=== PATIENT | female | born 1995 | race American Indian/Alaskan Native ===

== ENCOUNTER 2017-02-26 05:43 | Inpatient (IN) | payer MEDICAID ==
[~2017-02-26] VITALS: Ht 152.4 cm; Wt 95.9 kg
[2017-02-26] MEDS ORDERED: METOCLOPRAMIDE 5 MG/ML, 2ML IV ONE (06:00)
[2017-02-26] MEDS ORDERED: LACTATED RINGERS 1,000 ML IVBOLUS ONE (06:00)
[2017-02-26] MEDS ORDERED: SODIUM CITRATE/CITRIC ACID 30 ML UDC PO ONE (06:00)
[2017-02-26] MEDS: LACTATED RINGERS 1,000 ML IV SCH ×9 (06:06→23:34)
[2017-02-26] MEDS ORDERED: NEWBORN KIT ONE (06:08)
[2017-02-26] MEDS ORDERED: SODIUM CITRATE/CITRIC ACID 30 ML UDC ONE (06:08)
[2017-02-26] MEDS ORDERED: METOCLOPRAMIDE 5 MG/ML, 2ML ONE (06:08)
[2017-02-26] MEDS ORDERED: OXYTOCIN 30U/ 0.9% NaCL 500ML 500 ML ONE (06:08)
[2017-02-26 06:12] VITALS: BP 119/78
[2017-02-26] MEDS ORDERED: FENTANYL PF 100 MCG/2ML ONE ×2 (07:19→08:43)
[2017-02-26] MEDS: OXYTOCIN 30U/ 0.9% NaCL 500ML 500 ML IV SCH ×4 (07:34→17:34)
[2017-02-26] MEDS ORDERED: CARBOPROST TROMETHAMINE 250 MCG/ML, 1ML IM PRN (08:00)
[2017-02-26] MEDS ORDERED: ACETAMINOPHEN 325 MG TABLET PO PRN (08:00)
[2017-02-26] MEDS ORDERED: MISOPROSTOL 200 MCG TABLET PR PRN (08:00)
[2017-02-26] MEDS ORDERED: RHOGAM FROM BLOOD BANK 1 NOTE EA IM/IV ONE (08:00)
[2017-02-26] MEDS ORDERED: ONDANSETRON 2MG/ML, 2ML IV PRN (08:00)
[2017-02-26] MEDS ORDERED: METHYLERGONOVINE 0.2 MG/ML IM PRN (08:00)
[2017-02-26] MEDS ORDERED: morphine SULFATE 10 MG/ML, 1ML IVPush PRN (08:00)
[2017-02-26] MEDS ORDERED: MISOPROSTOL 200 MCG TABLET ONE (08:28)
[2017-02-26 08:39] LABS: DAU SCREEN DISCLAIMER
[2017-02-26] MEDS: PRENATAL VIT/IRON/FA 1 EACH TABLET PO SCH (09:00)
[2017-02-26] MEDS ORDERED: morphine SULFATE 10 MG/ML, 1ML ONE (09:54)
[2017-02-26] MEDS: morphine SULFATE 10 MG/ML, 1ML IVPush PRN ×2 (09:56→10:08)
[2017-02-26 11:15] VITALS: BP 111/74
[2017-02-26] MEDS: OXYcodone/APAP 5/325MG TABLET PO PRN ×2 (11:35→14:47)
[2017-02-26] MEDS: DOCUSATE 100 MG CAPSULE PO PRN (14:47)
[2017-02-26 15:15] VITALS: BP 114/70
[2017-02-26] MEDS ORDERED: KETOROLAC 30 MG/1 ML IM SCH (19:30)
[2017-02-26 20:00] VITALS: BP 119/75
[2017-02-27] MEDS: OXYcodone/APAP 5/325MG TABLET PO PRN ×5 (00:24→20:23)
[2017-02-27 00:25] VITALS: BP 123/77
[2017-02-27] MEDS: KETOROLAC 30 MG/1 ML IV SCH ×4 (01:23→19:30)
[2017-02-27] MEDS ORDERED: KETOROLAC 30 MG/1 ML IV SCH (01:30)
[2017-02-27] MEDS: LACTATED RINGERS 1,000 ML IV SCH ×6 (03:34→23:34)
[2017-02-27] MEDS: OXYTOCIN 30U/ 0.9% NaCL 500ML 500 ML IV SCH ×3 (03:34→23:34)
[2017-02-27 04:00] VITALS: BP 103/69
[2017-02-27 07:54] VITALS: BP 114/73
[2017-02-27] MEDS: DOCUSATE 100 MG CAPSULE PO PRN ×2 (08:51→20:22)
[2017-02-27] MEDS: PRENATAL VIT/IRON/FA 1 EACH TABLET PO SCH (08:51)
[2017-02-27] MEDS: IBUPROFEN 600 MG TABLET PO PRN ×2 (15:02→21:41)
[2017-02-27 19:20] VITALS: BP 127/86
[2017-02-27 19:53] VITALS: BP 123/76
[2017-02-28] MEDS: OXYcodone/APAP 5/325MG TABLET PO PRN ×3 (01:36→09:31)
[2017-02-28] MEDS: IBUPROFEN 600 MG TABLET PO PRN (05:24)
[2017-02-28 07:30] VITALS: BP 118/83
[2017-02-28] MEDS: LACTATED RINGERS 1,000 ML IV SCH (07:34)
[2017-02-28] MEDS: DOCUSATE 100 MG CAPSULE PO PRN (09:31)
[2017-02-28] MEDS: PRENATAL VIT/IRON/FA 1 EACH TABLET PO SCH (09:31)
[2017-02-28] MEDS ORDERED: OXYC-302 PO (10:57)
[2017-02-28] MEDS ORDERED: IBUP-1222 PO (10:58)
[2017-02-28] MEDS ORDERED: SENN-1 PO (10:59)
== END 2017-02-28 12:00 | disposition home or self-care (01) | DRG 766 ==
LOC: LDIP 05:43 → 2NW 11:04
PROVIDERS: ADMIT Obstetrics & Gynecology; ATTEND Obstetrics & Gynecology
PROC: 10D00Z1 Extraction of Products of Conception, Low, Open Approach (ICD-10-PCS; principal; 2017-02-26)
PROC: 0DNW0ZZ Release Peritoneum, Open Approach (ICD-10-PCS; 2017-02-26)
DX: O34.211 Maternal care for low transverse scar from previous cesarean delivery (principal); Z37.0 Single live birth; O99.89 Other specified diseases and conditions complicating pregnancy, childbirth and the puerperium; N73.6 Female pelvic peritoneal adhesions (postinfective); O69.81X0 Labor and delivery complicated by cord around neck, without compression, not applicable or unspecified; Z3A.39 39 weeks gestation of pregnancy
CPT/HCPCS: 36415; 80307; 82803; 85025; 85461; 86850; 86900; J1885; J2790; J3010; J2270; J2590; J2765; J7120

== ENCOUNTER 2018-09-26 21:28 | Emergency (ER) | payer SELFPAY ==
[~2018-09-26 21:28] MED LIST: IBUP-1222 PO; OXYC-302 PO; SENN-92 PO
[2018-09-26 21:33] VITALS: BP 118/63
== END 2018-09-26 21:46 | disposition left against medical advice (07) ==
LOC: ED 21:40
DX: R10.9 Unspecified abdominal pain (principal); Z53.21 Procedure and treatment not carried out due to patient leaving prior to being seen by health care provider

== ENCOUNTER 2019-02-14 18:14 | Emergency (ER) | payer MEDICAID ==
[~2019-02-14] VITALS: Ht 152.4 cm; Wt 91.0 kg
--- NOTE | 2019-02-14 18:39 | NUR ---
Dr. Fong at bedside to evaluate pt.
--- NOTE | 2019-02-14 18:49 | NUR ---
Lab at bedside. Pt aware of need for urine sample after US.
--- NOTE | 2019-02-14 18:53 | NUR ---
Pt to imaging, with tech, via [facility].
[2019-02-14 18:59] LABS: BASOPHILS # (AUTO) 0.03 x10^3/uL (0-0.1); BASOPHILS % (AUTO) 0 % (0-1); EOSINOPHILS # (AUTO) 0.17 x10^3/uL (0-0.4); EOSINOPHILS % (AUTO) 2 % (1-7); LYMPHOCYTES # (AUTO) 3.56 x10^3/uL (1-3.4); LYMPHOCYTES % (AUTO) 35 % (22-44); MD NO; MEAN CORPUSCULAR HGB CONC 34.3 g/dL (32.4-35.8); MEAN CORPUSCULAR VOLUME 84.8 fL (80-100); MEAN PLATELET VOLUME 9.3 fL (7.4-10.4); MONOCYTES # (AUTO) 0.53 x10^3/uL (0.2-0.8); MONOCYTES % (AUTO) 5 % (2-9); NEUTROPHILS # (AUTO) 5.77 x10^3/uL (1.8-6.8); NEUTROPHILS % (AUTO) 57 % (42-75); PLATELET COUNT 257 x10^3/uL (130-400); RED BLOOD COUNT 5.08 x10^6/uL (3.82-5.3)
--- NOTE | 2019-02-14 19:21 | NUR ---
Pt back to room from imaging.
[2019-02-14 19:45] LABS: MICROSCOPIC INDICATED
[2019-02-14 19:52] LABS: CULTURE INDICATED? NO
--- NOTE | 2019-02-14 19:56 | NUR ---
Patient/Caregiver given discharge instructions and they have confirmed that they understand the instructions. Patient ambulatory with steady gait.
[2019-02-14 19:57] VITALS: BP 100/52
== END 2019-02-14 19:58 | disposition home or self-care (01) ==
LOC: ED 19:52
DX: O03.9 Complete or unspecified spontaneous abortion without complication (principal); O99.331 Smoking (tobacco) complicating pregnancy, first trimester; Z3A.01 Less than 8 weeks gestation of pregnancy
CPT/HCPCS: 36415; 76856; 81001; 84702; 85025; 86901; 99284

== ENCOUNTER 2019-11-21 19:59 | Emergency (ER) | payer MEDICAID ==
[~2019-11-21] VITALS: Ht 152.4 cm; Wt 96.2 kg
[2019-11-21 20:02] VITALS: BP 124/75
[2019-11-21] MEDS ORDERED: ACETAMINOPHEN 500 MG TABLET ONE (20:38)
[2019-11-21] MEDS ORDERED: ACETAMINOPHEN 500 MG TABLET PO ONE (21:00)
[2019-11-21 21:38] LABS: MICROSCOPIC NOT IND
[2019-11-21 21:40] LABS: CULTURE INDICATED? NO
== END 2019-11-21 22:13 | disposition home or self-care (01) ==
LOC: ED 21:23
DX: O26.892 Other specified pregnancy related conditions, second trimester (principal); O99.332 Smoking (tobacco) complicating pregnancy, second trimester; R10.84 Generalized abdominal pain; R05 Cough; F17.200 Nicotine dependence, unspecified, uncomplicated; Z3A.17 17 weeks gestation of pregnancy
CPT/HCPCS: 76815; 81003; 99284

== ENCOUNTER → 2020-03-23 | Outpatient (CLI) | payer MEDICAID ==
[~2020-03-23] VITALS: Ht 152.4 cm; Wt 101.7 kg
[~2020-03-23] MED LIST changes: +FENTANYL PF 100 MCG/2ML ONE; +METOCLOPRAMIDE 5 MG/ML, 2ML ONE; +SODIUM CITRATE/CITRIC ACID 30 ML UDC ONE
[2020-03-23 21:21] VITALS: BP 120/73
== END | disposition home or self-care (01) ==
LOC: LDOP 20:27
PROVIDERS: ATTEND Obstetrics & Gynecology
DX: O42.92 Full-term premature rupture of membranes, unspecified as to length of time between rupture and onset of labor (principal); Z3A.37 37 weeks gestation of pregnancy
CPT/HCPCS: 59025; 84112; 99211; G0463

== ENCOUNTER 2020-03-27 07:28 | Inpatient (IN) | payer MEDICAID ==
[~2020-03-27] VITALS: Ht 152.4 cm; Wt 101.4 kg
[~2020-03-27 07:28] MED LIST changes: -FENTANYL PF 100 MCG/2ML ONE; -METOCLOPRAMIDE 5 MG/ML, 2ML ONE; -SODIUM CITRATE/CITRIC ACID 30 ML UDC ONE
[2020-03-27] MEDS ORDERED: LACTATED RINGERS 1,000 ML IV SCH (07:35)
[2020-03-27] MEDS ORDERED: NEWBORN KIT ONE (07:48)
[2020-03-27] MEDS ORDERED: OXYTOCIN 30U/ 0.9% NaCL 500ML 500 ML ONE (07:49)
[2020-03-27] MEDS ORDERED: EPHEDRINE 50 MG/ML, 1ML ONE (07:54)
[2020-03-27] MEDS ORDERED: ONDANSETRON 2MG/ML, 2ML ONE ×2 (07:54)
[2020-03-27] MEDS ORDERED: SODIUM BICARBONATE 1 MEQ/ML, 50ML VIAL ONE (07:54)
[2020-03-27] MEDS ORDERED: DEXAMETHASONE 4 MG/ML, 1ML ONE (07:54)
[2020-03-27] MEDS ORDERED: KETOROLAC 30 MG/1 ML ONE (07:54)
[2020-03-27] MEDS ORDERED: OXYTOCIN 10 UNITS/ML, 1ML ONE (07:54)
[2020-03-27] MEDS ORDERED: SUCCINYLCHOLINE 20 MG/ML, 10ML ONE (07:54)
[2020-03-27] MEDS ORDERED: PROPOFOL 10 MG/ML, 20ML ONE ×3 (07:54)
[2020-03-27] MEDS ORDERED: LIDOCAINE-MPF 2% ,5ML ONE (07:54)
[2020-03-27] MEDS ORDERED: CEFAZOLIN 1,000 MG ONE (07:54)
[2020-03-27] MEDS ORDERED: PHENYLEPHRINE 10 MG/ML ONE (07:54)
[2020-03-27] MEDS ORDERED: FENTANYL PF 100 MCG/2ML ONE ×2 (07:56→08:15)
[2020-03-27] MEDS ORDERED: MEPERIDINE/PF 25MG/0.5ML IVPush PRN (08:00)
[2020-03-27] MEDS ORDERED: PROMETHAZINE 25 MG/ML, 1ML IV PRN (08:00)
[2020-03-27] MEDS ORDERED: SODIUM CITRATE/CITRIC ACID 30 ML UDC PO ONE (08:00)
[2020-03-27] MEDS ORDERED: hydrALAzine 20 MG/ML, 1ML IV PRN (08:00)
[2020-03-27] MEDS ORDERED: LABETALOL 5MG/ML, 20ML IV PRN (08:00)
[2020-03-27] MEDS ORDERED: LACTATED RINGERS 1,000 ML IVBOLUS ONE (08:00)
[2020-03-27] MEDS ORDERED: OXYcodone 5 MG/5 ML ORAL.SOL UDC PO PRN (08:00)
[2020-03-27] MEDS ORDERED: EPHEDRINE 50 MG/ML, 1ML IVPush PRN (08:00)
[2020-03-27] MEDS ORDERED: ALBUTEROL SULFATE 2.5 MG/3 ML NPPB PRN (08:00)
[2020-03-27] MEDS ORDERED: METOCLOPRAMIDE 5 MG/ML, 2ML IV ONE (08:00)
[2020-03-27] MEDS ORDERED: HYDROcodone/APAP 7.5-325MG/15ML UDC PO PRN (08:00)
[2020-03-27] MEDS ORDERED: AZITHROMYCIN 500 MG in SODIUM CHLORIDE 0.9% 250 ML IV ONE (08:00)
[2020-03-27] MEDS ORDERED: HYDROmorphone 2 MG/ML, 1ML IVPush PRN (08:00)
[2020-03-27] MEDS ORDERED: ONDANSETRON 2MG/ML, 2ML IVPush PRN (08:00)
[2020-03-27 08:01] VITALS: BP 120/68
[2020-03-27 08:07] LABS: BASOPHILS # (AUTO) 0.01 x10^3/uL (0-0.1); BASOPHILS % (AUTO) 0 % (0-1); EOSINOPHILS # (AUTO) 0.05 x10^3/uL (0-0.4); EOSINOPHILS % (AUTO) 0 % (1-7); LYMPHOCYTES # (AUTO) 1.33 x10^3/uL (1-3.4); LYMPHOCYTES % (AUTO) 10 % (22-44); MD NO; MEAN CORPUSCULAR HEMOGLOBIN 27.9 pg (27.0-34.8); MEAN CORPUSCULAR HGB CONC 33.6 g/dL (32.4-35.8); MEAN PLATELET VOLUME 9.5 fL (7.4-10.4); MONOCYTES # (AUTO) 0.65 x10^3/uL (0.2-0.8); MONOCYTES % (AUTO) 5 % (2-9); NEUTROPHILS # (AUTO) 10.82 x10^3/uL (1.8-6.8); NEUTROPHILS % (AUTO) 84 % (42-75); PLATELET COUNT 192 x10^3/uL (130-400)
[2020-03-27 08:12] LABS: INTERNATIONAL NORMALIZED RATIO 0.93 (0.93-1.1); PROTHROMBIN TIME 9.9 Seconds (9.6-11.5)
[2020-03-27] MEDS ORDERED: HYDROmorphone 2 MG/ML, 1ML ONE (08:15)
[2020-03-27] MEDS: LACTATED RINGERS 1,000 ML IV SCH ×4 (09:08→19:08)
[2020-03-27] MEDS ORDERED: OXYcodone 5 MG/5 ML ORAL.SOL UDC ONE (09:28)
[2020-03-27] MEDS ORDERED: MISOPROSTOL 200 MCG TABLET PR PRN (09:30)
[2020-03-27] MEDS ORDERED: ONDANSETRON 2MG/ML, 2ML IV PRN (09:30)
[2020-03-27] MEDS ORDERED: CALCIUM CARBONATE 500 MG TAB.CHEW PO PRN (09:30)
[2020-03-27] MEDS ORDERED: OXYcodone IR 5MG TABLET PO PRN (09:30)
[2020-03-27] MEDS ORDERED: ACETAMINOPHEN 325 MG TABLET PO PRN (09:30)
[2020-03-27] MEDS ORDERED: METOCLOPRAMIDE 5 MG/ML, 2ML IV PRN (09:30)
[2020-03-27] MEDS ORDERED: SIMETHICONE 80 MG CHEW TAB PO PRN (09:30)
[2020-03-27] MEDS ORDERED: RHOGAM FROM BLOOD BANK 1 NOTE EA IM/IV ONE ×2 (09:30→23:30)
[2020-03-27] MEDS ORDERED: DIPH,PERTUSS(ACELL),TET VAC/PF NC IM-VACC PRN (09:30)
[2020-03-27] MEDS ORDERED: MEASLES,MUMPS&RUBELLA VACC/PF 0.5 ML SQ-VACC PRN (09:30)
[2020-03-27] MEDS ORDERED: morphine SULFATE 10 MG/ML, 1ML IVPush PRN ×2 (09:30)
[2020-03-27 09:40] LABS: AMPHETAMINE SCREEN, URINE Negative (Negative); BARBITURATE SCREEN, URINE Negative (Negative); BENZODIAZEPINE SCREEN, URINE Negative (Negative); CANNABINOID SCREEN, URINE Positive (Negative); COCAINE SCREEN, URINE Negative (Negative); METHADONE SCREEN, URINE Negative (Negative); OPIATE SCREEN, URINE Negative (Negative)
[2020-03-27 10:16] LABS: MEAN CORPUSCULAR HEMOGLOBIN 27.6 pg (27.0-34.8); MEAN CORPUSCULAR HGB CONC 32.9 g/dL (32.4-35.8); MEAN CORPUSCULAR VOLUME 83.7 fL (80-100); MEAN PLATELET VOLUME 9.5 fL (7.4-10.4); PLATELET COUNT 167 x10^3/uL (130-400); RED BLOOD COUNT 3.23 x10^6/uL (3.82-5.3); RED CELL DISTRIBUTION WIDTH 15.4 % (9.6-15.2)
[2020-03-27] MEDS: FENTANYL PF 100 MCG/2ML IV PRN ×4 (10:39→11:25)
[2020-03-27] MEDS: OXYTOCIN 30U/ 0.9% NaCL 500ML 500 ML IV SCH ×2 (10:42→19:08)
[2020-03-27 10:46] LABS: MD YES
[2020-03-27 10:53] LABS: ANISOCYTOSIS 1+; BAND#(MANUAL) 1.72 x10^3/uL; BANDS%(MANUAL) 11 % (0-7); LYMPH#(MANUAL) 1.25 x10^3/uL (1-3.4); LYMPHS% (MANUAL) 8 % (22-44); MONOS#(MANUAL) 0.31 x10^3/uL (0.3-2.7); MONOS% (MANUAL) 2 % (2-9); SEG#(MANUAL) 12.32 x10^3/uL (1.8-6.8); SEGS% (MANUAL) 79 % (42-75)
[2020-03-27 10:54] LABS: <PLATELET ESTIMATE> ADEQUATE; <PLT MORPHOLOGY> NORMAL PLT MORPH
[2020-03-27 12:00] VITALS: BP 116/73
[2020-03-27] MEDS: OXYcodone IR 5MG TABLET PO PRN ×3 (13:16→20:17)
[2020-03-27] MEDS: DOCUSATE 100 MG CAPSULE PO PRN (13:17)
[2020-03-27] MEDS: KETOROLAC 30 MG/1 ML IV PRN ×2 (15:46→21:52)
[2020-03-27 16:30] VITALS: BP 109/72
[2020-03-27] MEDS: NICOTINE 7 MG/24 HR PATCH.TD24 TD SCH (18:21)
[2020-03-27 19:55] VITALS: BP 135/86
[2020-03-27] MEDS: ACETAMINOPHEN 325 MG TABLET PO PRN (20:17)
[2020-03-27 20:39] LABS: MEAN CORPUSCULAR HGB CONC 33.9 g/dL (32.4-35.8); MEAN CORPUSCULAR VOLUME 82.5 fL (80-100); MEAN PLATELET VOLUME 9.6 fL (7.4-10.4); PLATELET COUNT 165 x10^3/uL (130-400); RED BLOOD COUNT 2.71 x10^6/uL (3.82-5.3); RED CELL DISTRIBUTION WIDTH 15.6 % (9.6-15.2)
[2020-03-27 20:40] LABS: BASOPHILS # (AUTO) 0.03 x10^3/uL (0-0.1); BASOPHILS % (AUTO) 0 % (0-1); EOSINOPHILS % (AUTO) 0 % (1-7); LYMPHOCYTES # (AUTO) 1.89 x10^3/uL (1-3.4); LYMPHOCYTES % (AUTO) 15 % (22-44); MD NO; MONOCYTES # (AUTO) 0.86 x10^3/uL (0.2-0.8); MONOCYTES % (AUTO) 7 % (2-9); NEUTROPHILS # (AUTO) 9.71 x10^3/uL (1.8-6.8); NEUTROPHILS % (AUTO) 78 % (42-75)
[2020-03-28] VITALS: BP 112/71
[2020-03-28] MEDS: OXYcodone IR 5MG TABLET PO PRN ×6 (00:13→21:55)
[2020-03-28] MEDS: ACETAMINOPHEN 325 MG TABLET PO PRN ×6 (00:13→21:55)
[2020-03-28] MEDS: LACTATED RINGERS 1,000 ML IV SCH ×2 (01:08→05:08)
[2020-03-28] MEDS: KETOROLAC 30 MG/1 ML IV PRN (04:00)
[2020-03-28 04:02] VITALS: BP 121/72
[2020-03-28] MEDS: OXYTOCIN 30U/ 0.9% NaCL 500ML 500 ML IV SCH (05:08)
[2020-03-28] MEDS: IBUPROFEN 600 MG TABLET PO PRN ×3 (06:33→20:56)
[2020-03-28] MEDS: FERROUS SULFATE 325 MG TABLET PO SCH ×3 (08:40→20:56)
[2020-03-28] MEDS: PRENATAL VIT/IRON/FA 1 EACH TABLET PO SCH (08:40)
[2020-03-28] MEDS: ASCORBIC ACID 500 MG TABLET PO SCH ×3 (08:40→20:56)
[2020-03-28] MEDS: DOCUSATE 100 MG CAPSULE PO PRN (08:40)
[2020-03-28 08:41] VITALS: BP 112/76
[2020-03-28 12:08] VITALS: BP 112/75
[2020-03-28] MEDS: NICOTINE 7 MG/24 HR PATCH.TD24 TD SCH (17:56)
[2020-03-28 20:50] VITALS: BP 118/76
[2020-03-29] MEDS: IBUPROFEN 600 MG TABLET PO PRN ×3 (03:06→21:16)
[2020-03-29] MEDS: OXYcodone IR 5MG TABLET PO PRN ×5 (03:06→21:18)
[2020-03-29] MEDS: ACETAMINOPHEN 325 MG TABLET PO PRN ×5 (03:06→21:17)
[2020-03-29 03:46] LABS: MEAN CORPUSCULAR HEMOGLOBIN 27.7 pg (27.0-34.8); MEAN CORPUSCULAR HGB CONC 33.1 g/dL (32.4-35.8); MEAN CORPUSCULAR VOLUME 83.5 fL (80-100); MEAN PLATELET VOLUME 8.3 fL (7.4-10.4); PLATELET COUNT 200 x10^3/uL (130-400); RED BLOOD COUNT 2.24 x10^6/uL (3.82-5.3); RED CELL DISTRIBUTION WIDTH 15.9 % (9.6-15.2)
[2020-03-29 04:17] LABS: BASOPHILS # (AUTO) 0.05 x10^3/uL (0-0.1); BASOPHILS % (AUTO) 0 % (0-1); EOSINOPHILS # (AUTO) 0.27 x10^3/uL (0-0.4); EOSINOPHILS % (AUTO) 2 % (1-7); LYMPHOCYTES # (AUTO) 2.02 x10^3/uL (1-3.4); LYMPHOCYTES % (AUTO) 16 % (22-44); MD SCAN; MONOCYTES # (AUTO) 0.76 x10^3/uL (0.2-0.8); MONOCYTES % (AUTO) 6 % (2-9); NEUTROPHILS % (AUTO) 76 % (42-75)
[2020-03-29] MEDS: DOCUSATE 100 MG CAPSULE PO PRN ×2 (07:33→21:16)
[2020-03-29] MEDS: FERROUS SULFATE 325 MG TABLET PO SCH ×3 (07:33→21:15)
[2020-03-29] MEDS: ASCORBIC ACID 500 MG TABLET PO SCH ×3 (07:33→21:18)
[2020-03-29] MEDS: PRENATAL VIT/IRON/FA 1 EACH TABLET PO SCH (07:33)
[2020-03-29 07:40] VITALS: BP 126/82
[2020-03-29] MEDS: NICOTINE 7 MG/24 HR PATCH.TD24 TD SCH (17:10)
[2020-03-29] MEDS ORDERED: DIPHENHYDRAMINE 25 MG CAPSULE PO PRN (18:00)
[2020-03-29 19:11] VITALS: BP 117/78
[2020-03-30] MEDS: OXYcodone IR 5MG TABLET PO PRN ×2 (01:48→07:12)
[2020-03-30] MEDS: ACETAMINOPHEN 325 MG TABLET PO PRN (01:48)
[2020-03-30] MEDS: DOCUSATE 100 MG CAPSULE PO PRN (07:12)
[2020-03-30] MEDS: IBUPROFEN 600 MG TABLET PO PRN (07:13)
[2020-03-30] MEDS: PRENATAL VIT/IRON/FA 1 EACH TABLET PO SCH (07:13)
[2020-03-30] MEDS: FERROUS SULFATE 325 MG TABLET PO SCH (07:13)
[2020-03-30 07:27] LABS: MEAN CORPUSCULAR HEMOGLOBIN 28.1 pg (27.0-34.8); MEAN CORPUSCULAR HGB CONC 33.6 g/dL (32.4-35.8); MEAN CORPUSCULAR VOLUME 83.9 fL (80-100); MEAN PLATELET VOLUME 7.7 fL (7.4-10.4); PLATELET COUNT 259 x10^3/uL (130-400); RED BLOOD COUNT 2.27 x10^6/uL (3.82-5.3)
[2020-03-30] MEDS: ASCORBIC ACID 500 MG TABLET PO SCH (07:29)
[2020-03-30 07:30] VITALS: BP 121/82
[2020-03-30 07:30] LABS: MD YES
[2020-03-30 07:31] LABS: BANDS%(MANUAL) 1 % (0-7); EOS#(MANUAL) 0.19 x10^3/uL (0.0-0.4); EOS% (MANUAL) 2 % (1-7); LYMPH#(MANUAL) 2.85 x10^3/uL (1-3.4); LYMPHS% (MANUAL) 30 % (22-44); MONOS#(MANUAL) 0.48 x10^3/uL (0.3-2.7); MONOS% (MANUAL) 5 % (2-9); NRBC % (MANUAL) 1 % (0-1); SEG#(MANUAL) 5.89 x10^3/uL (1.8-6.8); SEGS% (MANUAL) 62 % (42-75)
[2020-03-30 07:32] LABS: <PLATELET ESTIMATE> ADEQUATE; <PLT MORPHOLOGY> NORMAL PLT MORPH; ANISOCYTOSIS 1+; POLYCHROMASIA 1+
[2020-03-30] MEDS ORDERED: OXYC-302 PO (11:01)
[2020-03-30] MEDS ORDERED: IBUP-1222 PO (11:01)
[2020-03-30] MEDS ORDERED: FERR324T5 PO (11:01)
[2020-03-30] MEDS ORDERED: ASCO500T8 PO (11:02)
== END 2020-03-30 13:10 | disposition home or self-care (01) | DRG 786 ==
LOC: LDOP 07:28 → LDIP 07:32 → 2NW 11:33
PROVIDERS: ADMIT Obstetrics & Gynecology; ATTEND Obstetrics & Gynecology
PROC: 10D00Z1 Extraction of Products of Conception, Low, Open Approach (ICD-10-PCS; principal; 2020-03-27)
PROC: 3E0234Z Introduction of Serum, Toxoid and Vaccine into Muscle, Percutaneous Approach (ICD-10-PCS; 2020-03-28)
DX: O34.211 Maternal care for low transverse scar from previous cesarean delivery (principal); O45.8X3 Other premature separation of placenta, third trimester; O69.81X0 Labor and delivery complicated by cord around neck, without compression, not applicable or unspecified; N73.6 Female pelvic peritoneal adhesions (postinfective); Z37.0 Single live birth; Z3A.38 38 weeks gestation of pregnancy; Z67.41 Type O blood, Rh negative; O26.893 Other specified pregnancy related conditions, third trimester; Z20.828 Contact with and (suspected) exposure to other viral communicable diseases
CPT/HCPCS: 36415; J3490; 80307; 82803; 85014; 85018; 85025; 85384; 85461; 85610; 86592; 86850; 86900; 86923; 87635; 88307; G0378; J0456; J0690; J1100; J1170; J1885; J2405; J2704; J2790; J3010; C1765; J0330; J2270; J2370; J2590; J2765; J7050; J7120

== ENCOUNTER 2020-06-17 18:10 | Emergency (ER) | payer MEDICAID ==
[~2020-06-17] VITALS: Ht 152.4 cm; Wt 92.0 kg
[~2020-06-17 18:10] MED LIST changes: +ASCO500T8 PO; +FERR324T5 PO
[2020-06-17 18:17] VITALS: BP 135/87
--- NOTE | 2020-06-17 20:02 | NUR ---
patient called 3 times, no anwer. not in the lobby
== END 2020-06-17 20:15 | disposition left against medical advice (07) ==
LOC: ED 18:40
DX: M54.5 Low back pain (principal); Z53.21 Procedure and treatment not carried out due to patient leaving prior to being seen by health care provider

== ENCOUNTER 2020-09-21 06:09 | Emergency (ER) | payer MEDICAID ==
[~2020-09-21] VITALS: Ht 152.4 cm; Wt 96.3 kg
--- NOTE | 2020-09-21 06:33 | NUR ---
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 Patient states that the last thing she ate was [employer]. States that as soon as she drinks water she throws it up. Pain is in the epigastric, mid abdomen. VSS, call light within reach
--- NOTE | 2020-09-21 06:57 | NUR ---
PT REPORT FROM KALEIGH FLANNERY. PT CARE TO BE ASSUMED.
[2020-09-21] MEDS ORDERED: SODIUM CHLORIDE FLUSH 10ML SYR IVF ONE (07:00)
[2020-09-21] MEDS ORDERED: ONDANSETRON 2MG/ML, 2ML IVPush ONE (07:00)
[2020-09-21] MEDS ORDERED: ONDANSETRON 2MG/ML, 2ML ONE (07:05)
--- NOTE | 2020-09-21 07:07 | NUR ---
LAB & US AT BS. PT C/O EPIGASTRIC AREA PAIN X 1-1/2 HRS. + VOMITNG TOOK GAS-X, KONG (AT 0540). DENIES UTI SX. LAST ORAL INTAKE 1999. LAST BM: YESTERDAY, HARD FORMED. LMP: 09/12/20.
[2020-09-21] MEDS ORDERED: ANXIETY (07:13)
[2020-09-21] MEDS ORDERED: STRESS (07:13)
--- NOTE | 2020-09-21 07:14 | NUR ---
REPORTS MILD NAUSEA CURRENTLY. U/S IN PROGRESS.
[2020-09-21 07:16] VITALS: BP 104/66
[2020-09-21 07:33] LABS: BASOPHILS % (AUTO) 1 % (0-1); EOSINOPHILS % (AUTO) 3 % (1-7); LYMPHOCYTES % (AUTO) 31 % (22-44); MEAN CORPUSCULAR HEMOGLOBIN 28.8 pg (27.0-34.8); MEAN CORPUSCULAR HGB CONC 34.3 g/dL (32.4-35.8); MEAN PLATELET VOLUME 9.2 fL (7.4-10.4); MONOCYTES % (AUTO) 6 % (2-9); NEUTROPHILS % (AUTO) 60 % (42-75); PLATELET COUNT 270 x10^3/uL (130-400); RED BLOOD COUNT 5.03 x10^6/uL (3.82-5.3); RED CELL DISTRIBUTION WIDTH 13.9 % (9.6-15.2)
[2020-09-21 07:44] LABS: CHLORIDE 109 mmol/L (98-107)
[2020-09-21 07:53] LABS: ALANINE AMINOTRANSFERASE 67 U/L (12-78); ALBUMIN 3.8 g/dL (3.4-5.0); ALKALINE PHOSPHATASE 91 U/L (45-117); ANION GAP 7 mmol/L (5-15); BILIRUBIN,TOTAL 0.3 mg/dL (0.2-1.0); CREATININE 0.78 mg/dL (0.55-1.02); TOTAL PROTEIN 7.8 g/dL (6.4-8.2)
[2020-09-21 07:54] LABS: MD NO
--- NOTE | 2020-09-21 08:11 | NUR ---
PT AMBULATORY TO & FROM [facility] W/OUT INCIDENT; VOIDED SPECIMEN PROVIDED.
--- NOTE | 2020-09-21 08:16 | NUR ---
UA TO BE CANCELLED PER DR TALAMANTES. PT TO BE DC'D.
--- NOTE | 2020-09-21 08:30 | NUR ---
PT REFUSING ZOFRAN, AT THIS TIME.
== END 2020-09-21 09:15 | disposition home or self-care (01) ==
LOC: ED 07:50
DX: K80.20 Calculus of gallbladder without cholecystitis without obstruction (principal); R10.13 Epigastric pain; R10.10 Upper abdominal pain, unspecified; R11.2 Nausea with vomiting, unspecified; F17.210 Nicotine dependence, cigarettes, uncomplicated
CPT/HCPCS: 36415; 71045; 76700; 80053; 83690; 84703; 85025; 99285; 99406

== ENCOUNTER 2020-10-08 10:42 | Emergency (ER) | payer MEDICAID ==
[~2020-10-08] VITALS: Ht 152.4 cm; Wt 95.3 kg
[~2020-10-08 10:42] MED LIST changes: +ANXIETY; +STRESS
[2020-10-08 10:46] VITALS: BP 164/80
[2020-10-08] MEDS ORDERED: HYDROcodone/APAP 5/325 TABLET PO ONE (11:30)
[2020-10-08] MEDS ORDERED: HYDROcodone/APAP 5/325 TABLET ONE (11:31)
--- NOTE | 2020-10-08 11:35 | NUR ---
DISCHARGED HOME IN CARE OF DESPITE RECENT NARCOTIC ADMINISTRATION PATIENT IN CARE OF AND NOT NAIVE TO NARCOTICS
== END 2020-10-08 11:40 | disposition home or self-care (01) ==
LOC: ED 11:17
DX: K02.9 Dental caries, unspecified (principal)
CPT/HCPCS: 99283

== ENCOUNTER 2021-01-09 17:13 | Emergency (ER) | payer MEDICAID ==
[~2021-01-09] VITALS: Ht 152.4 cm; Wt 95.9 kg
[~2021-01-09 17:13] MED LIST changes: -OXYC-302 PO; +OXYC1TAB14 PO
--- NOTE | 2021-01-09 17:23 | NUR ---
BIB EMS FOR RIGHT SIDE FLANK PAIN STARTING 2 H AGO WITH RADIATION TO GROIN, NAUSEA. PT IN BED WITH CONT SPO2, BP Q 30 MIN, SIDE RAILS UP X2. PA AT BEDSIDE.
[2021-01-09 18:03] LABS: BASOPHILS % (AUTO) 1 % (0-1); EOSINOPHILS % (AUTO) 1 % (1-7); LYMPHOCYTES % (AUTO) 16 % (22-44); MEAN CORPUSCULAR HEMOGLOBIN 28.3 pg (27.0-34.8); MEAN CORPUSCULAR HGB CONC 33.8 g/dL (32.4-35.8); MEAN PLATELET VOLUME 8.8 fL (7.4-10.4); MONOCYTES % (AUTO) 6 % (2-9); NEUTROPHILS % (AUTO) 77 % (42-75); PLATELET COUNT 257 x10^3/uL (130-400); RED BLOOD COUNT 5.27 x10^6/uL (3.82-5.3); RED CELL DISTRIBUTION WIDTH 13.9 % (9.6-15.2)
[2021-01-09 18:09] LABS: ALBUMIN 3.8 g/dL (3.4-5.0); ANION GAP 6 mmol/L (5-15); CALCIUM 8.7 mg/dL (8.5-10.1); CHLORIDE 109 mmol/L (98-107); CREATININE 0.67 mg/dL (0.55-1.02)
[2021-01-09 18:10] LABS: MD NO
[2021-01-09 18:42] VITALS: BP 124/74
--- NOTE | 2021-01-09 18:42 | NUR ---
PT REPORTS THAT SHE CAN NOT GIVE A URINE AT THIS TIME. WATER GIVEN
--- NOTE | 2021-01-09 19:32 | NUR ---
Report received from KALEIGH Perdomo. This RN to assume care. Chaperoned US at bedside. Advised patient POC to be reevaluated after US results. Patient agreeable to POC.
[2021-01-09 19:52] LABS: MICROSCOPIC NOT IND
--- NOTE | 2021-01-09 21:35 | NUR ---
Discharge instructions given. All questions and concerns addressed. Patient ambulatory with a steady gait. Belongings with patient.
== END 2021-01-09 21:36 | disposition home or self-care (01) ==
LOC: ED 21:11
DX: N93.8 Other specified abnormal uterine and vaginal bleeding (principal); R10.30 Lower abdominal pain, unspecified; F17.210 Nicotine dependence, cigarettes, uncomplicated
CPT/HCPCS: 36415; 76830; 80048; 81003; 82040; 84703; 85025; 99284